=== PATIENT | male | born 1970 | race Caucasian/White ===

== ENCOUNTER → 2017-04-03 | Outpatient (CLI) | payer OTHER ==
--- NOTE | 2017-04-10 11:31 | CONS ---
DATE OF CONSULTATION: 04/03/2017 A 47-year-old gentleman had been evaluated in the sleep center for possible obstructive sleep apnea hypopnea syndrome. HISTORY OF PRESENT ILLNESS/SLEEP WAKE EVALUATION: The patient's usual sleep scheduled from 11 p.m. to 8:39 a.m. on weekdays and from 11 p.m. to 10 to 11 a.m. on weekends. Sometimes patient has problems with falling asleep. Patient snores, has witnessed episodes of stop breathing during the sleep by his . Wakes up from sleep 3 times with nocturia. In the morning, the patient feels tired. Has problem with the memory, worries about his sleep. [place] sleepiness scale increased to 10. PAST MEDICAL HISTORY: Hypertension, history of stroke at the age of 41 with aphasia, hyperlipidemia. MEDICATIONS: Simvastatin, amlodipine, enalapril. PAST SURGICAL HISTORY: Surgery for broken ankle in 2006. REVIEW OF SYSTEMS: Multiple awakenings from sleep, sleepiness during the day. FAMILY HISTORY: Unavailable. The patient was adopted. SOCIAL HISTORY: Positive for smoking. Started from 1 pack a day up to 3 packs a day for 15 years, quit 6 years ago. Continued chewing tobacco. Alcohol consumption presently none. IMPRESSION: 1. Snoring, witnessed episodes of stopped breathing during the sleep. Excessive sleepiness. [place] sleepiness scale increased to 10. Retrognathia. Extremely low soft palate. Restriction of nasal breathing. Obstructive sleep apnea hypopnea syndrome. 2. Obesity, BMI 32.5. 3. Hyperlipidemia. 4. Hypertension. 5. History of stroke at age of 41 with speech problems. 6. Asymmetric nasal passages with some restriction of nasal breathing. 7. Status post surgical treatment of broken ankle in 2006 on the left. PLAN: 1. Polysomnography for evaluation of patient's breathing during sleep. 2. CPAP/BiPAP titration if sleep study confirms obstructive sleep apnea- hypopnea syndrome. 3. Preferable position during sleep on the side. 4. No driving if patient feels any sleepiness. Patient is aware of civil and criminal liability for unsafe driving. 5. I will see patient for follow up visit to explain results of testing and following plan. Thank you very much for referring this patient for consultation. Sincerely, Lakhwinder Angeles MD, PhD, FAASM Diplomat of [place] [employer] [employer] [facility] [place] [facility]
== END ==
LOC: SLEEP 14:42
PROVIDERS: ATTEND Internal Medicine
DX: G47.33 Obstructive sleep apnea (adult) (pediatric) (principal); E78.5 Hyperlipidemia, unspecified; I10 Essential (primary) hypertension; E66.9 Obesity, unspecified; Z68.32 Body mass index [BMI] 32.0-32.9, adult; Z86.73 Personal history of transient ischemic attack (TIA), and cerebral infarction without residual deficits; Z79.899 Other long term (current) drug therapy
CPT/HCPCS: 99211

== ENCOUNTER → 2023-06-06 | Outpatient (CLI) | payer OTHER ==
--- NOTE | 2023-06-06 21:41 | MR ---
EXAMINATION TYPE: MR MRCP DATE OF EXAM: 06/06/2023 10:17 AM CLINICAL INDICATION:Male, 53 years old with history of K86.2 CYST OF PANCREAS; Cyst, abnormal studies COMPARISON: MRI 05/06/2022, ultrasound 04/22/2022. TECHNIQUE: Multi planar, T2-weighted imaging with and without fat saturation and chemical shift imag ing was performed of the abdomen. Then, heavily T2 weighted imaging (half-Fourier acquisition single- shot turbo spin-echo) was utilized in order to study the biliary system. Maximum intensity projectio n images were reconstructed from the original data of the biliary tree. 3D images were created on a [employer] work station. No Gadolinium given. FINDINGS: Lower Thorax: No evidence for acute process. MRCP: * The intrahepatic ducts have a normal appearance. * The common bile duct at the level of the pancreatic head measures 4 mm in size. * The common hepatic duct measures 5 mm in size. * The pancreatic duct is normal. Pancreatic head cyst measuring 4 mm. * The gallbladder appears small layering gallstone which appears in slightly different position comp ared 05/06/2022. Abdomen: Liver: Evidence for hepatic steatosis.. Pancreas: Unremarkable. Spleen: Enlarged measuring up to 14.4 cm. Adrenal glands: Unremarkable. Kidneys: No evidence for obstructive uropathy. Right renal simple appearing cyst. Stomach and Bowel: Unremarkable as visualized. Peritoneum: No evidence of pneumoperitoneum or free fluid. Vasculature: Unremarkable. No aortic aneurysm. Musculoskeletal: The osseous structures appear intact. Lymph Nodes: No gross evidence for lymphadenopathy. Abdominal wall: Unremarkable. IMPRESSION: 1. Pancreatic head cyst measuring up to 4 mm. Finding could represent sidebranch intraductal papilla ry mucinous neoplasm versus external prior pancreatitis. No evidence to suggest ductal stricture, cho ledocholithiasis, or biliary ductal dilatation. 2. Cholelithiasis favored over gallbladder polyp given and appears to be in a different location com pared to prior on 05/06/2022. 3. Hepatic steatosis. 4. Mild thyromegaly.
== END | disposition home or self-care (01) ==
LOC: RADMRIMAIN 09:24
PROVIDERS: ATTEND Internal Medicine Gastroenterology
DX: K86.2 Cyst of pancreas (principal); K76.0 Fatty (change of) liver, not elsewhere classified; E01.0 Iodine-deficiency related diffuse (endemic) goiter
CPT/HCPCS: 74181

== ENCOUNTER → 2024-06-28 | Outpatient (CLI) | payer OTHER ==
--- NOTE | 2024-06-28 10:31 | MR ---
EXAMINATION TYPE: MR MRCP DATE OF EXAM: 06/28/2024 9:44 AM CLINICAL INDICATION: Male, 54 years old with history of K86.2 cyst of pancreas; [facility], COMPARISON: 06/06/2023, 05/06/2022 TECHNIQUE: Multi planar, T2-weighted imaging with and without fat saturation and chemical shift imag ing was performed of the abdomen. Then, heavily T2 weighted imaging (half-Fourier acquisition single- shot turbo spin-echo) was utilized in order to study the biliary system. Maximum intensity projectio n images were reconstructed from the original data of the biliary tree. 3D images were created on [employer] work station. No Gadolinium given. FINDINGS: Lower Thorax: No evidence for acute process. MRCP: * The intrahepatic ducts have a normal appearance. * The common bile duct at the level of the pancreatic head measures 4 mm in size. * The common hepatic duct measures 5 mm in size. * The pancreatic duct is normal. The gallbladder appears small with layering gallstone which appear s in slightly different position compared 06/06/2023 and 05/06/2022. Abdomen: Liver: No suspicious masses, ductal dilatation or suspicious cysts. Pancreas: Pancreatic head high T2 signal cystic lesion measuring up to 6 mm similar prior given coreen vazquez in measuring technique 4 mm. Spleen: Enlarged measuring up to 14.9 cm. Adrenal glands: Unremarkable. Kidneys: No evidence for obstructive uropathy. Right renal simple appearing cyst. Stomach and Bowel: Unremarkable as visualized. Peritoneum: No evidence of pneumoperitoneum or free fluid. Vasculature: Unremarkable. No aortic aneurysm. Musculoskeletal: The osseous structures appear intact. Lymph Nodes: No gross evidence for lymphadenopathy. Abdominal wall: Unremarkable. IMPRESSION: 1. Stable pancreatic head cystic lesion measuring up to 6 mm when a coming from measuring technique finding could represent sidebranch intraductal papillary mucinous neoplasm versus external prior panc reatitis. No evidence to suggest ductal stricture, choledocholithiasis, or biliary ductal dilatation. 2. Cholelithiasis favored over gallbladder polyp given and appears to be in a different location com pared to prior on 05/06/2022. 3. Mild splenomegaly [facility], , 06/28/2024 10:28 AM
== END | disposition home or self-care (01) ==
LOC: RADMRIMAIN 08:55
PROVIDERS: ATTEND Internal Medicine Gastroenterology
DX: K86.2 Cyst of pancreas
CPT/HCPCS: 74181